=== PATIENT | male | born 1950 | race Caucasian/White ===

== ENCOUNTER 2020-07-01 23:20 | Emergency (ER) | payer MEDICARE ==
[~2020-07-01 23:20] MED LIST: ADULT LOW DOSE81 MG PO; ALDACTONE50 MG PO; ALTACE10 MG PO; AMBIEN10 MG PO; AMOXICILLIN500 MG PO; ATORVASTATIN CA20 MG PO; AUGMENTIN 875-1 EACH PO; CARDURA 2MG TAB2 MG PO; CHLORTHALIDONE25 MG PO; COLACE100 MG PO; CYANOCOBAL1000 MCG/1 INJ; ESCITALOPRAM OX20 MG PO; HYDROCODON-ACE1 EAC6 PO; ISOSORBIDE MONO30 MG PO; KLOR-CON M1010 MEQ PO; MAXZIDE 37.5 M1 EACH PO; MOBIC15 MG PO; OSTEO BI-FLEX1 EAC2 PO; POTASSIUM CHLO10 MEQ PO; PRESERVISION A1 EAC1 PO; RANOLAZINE ER500 MG PO; VITAMIN D21250 MCG PO; ZOCOR20 MG PO
[2020-07-02 00:19] LABS: HEMOGLOBIN 12.9 gm/dl (14.0-17.5); RED BLOOD COUNT 4.54 M/UL (4.20-5.50); WHITE BLOOD COUNT 5.1 K/UL (4.5-11.0)
[2020-07-02 00:35] LABS: BUN/CREATININE RATIO 22 (0-10)
== END 2020-07-02 03:00 | disposition home or self-care (01) ==
LOC: ER1 23:20
PROVIDERS: Family Medicine
DX: I10 Essential (primary) hypertension (principal); R00.1 Bradycardia, unspecified; Z79.899 Other long term (current) drug therapy
CPT/HCPCS: 80048; 85025; 93005; 96374; 99283; J0360; J1642